=== PATIENT | male | born 1985 | race African-American/Black ===

== ENCOUNTER 2018-07-07 17:07 | Emergency (ER) | payer OTHER ==
[2018-07-07 17:15] VITALS: BP 164/114; TEMP 98.7; BMI 28.0
[2018-07-07] MEDS ORDERED: SODIUM CHLORIDE 1,000 ML IV STA (18:36)
[2018-07-07] MEDS ORDERED: MORPHINE 2 MG/ML SYRINGE IVP STA (19:51)
[2018-07-07] MEDS ORDERED: ZOFRAN 4 MG/2 ML IVP STA (19:52)
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
--- NOTE | 2018-07-07 20:09 | CT ---
EXAM: CT scan of the abdomen pelvis with contrast HISTORY: Trauma TECHNIQUE: Helical imaging of the abdomen pelvis was performed following the intravenous administrat ion of contrast. 3 mm thin axial images and coronal and sagittal reconstructions were provided for i nterpretation. FINDINGS: The liver, spleen, pancreas, adrenal glands and kidneys appear normal. The proximal urete rs are normal size. The small and large bowel loops are normal caliber. There is no free air. No r etroperitoneal abnormalities are seen. The helical images obtained through the pelvis demonstrate a normal appearance of the rectum, urinary bladder. There is no free fluid seen within the pelvis. The appendix appears normal. Lung bases a re clear. No lytic or blastic lesions are seen within the osseous structures. IMPRESSION: No acute traumatic abnormalities are seen.
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
== END 2018-07-07 20:26 | disposition home or self-care (01) ==
LOC: ED 17:07
DX: R10.30 Lower abdominal pain, unspecified (principal); S39.91XA Unspecified injury of abdomen, initial encounter; M25.562 Pain in left knee; M25.561 Pain in right knee; V09.9XXA Pedestrian injured in unspecified transport accident, initial encounter; F17.210 Nicotine dependence, cigarettes, uncomplicated
CPT/HCPCS: 36415; 80053; 81001; 82150; 83690; 85025; 85651; 96361; 96374; 96375; 99283